=== PATIENT | male | born 1985 | race Caucasian/White ===

== ENCOUNTER 2017-04-23 21:34 | Emergency (ER) | payer MEDICAID ==
[~2017-04-23] VITALS: Ht 172.7 cm; Wt 81.6 kg
[2017-04-23 22:17] VITALS: BP 123/78
[2017-04-24] MEDS ORDERED: IBUPROFEN 600 MG TAB PO ONE (00:30)
== END 2017-04-24 00:41 | disposition home or self-care (01) ==
LOC: ER 21:44
DX: K08.89 Other specified disorders of teeth and supporting structures (principal)

== ENCOUNTER 2018-05-14 00:18 | Emergency (ER) | payer MEDICAID ==
[~2018-05-14] VITALS: Ht 172.7 cm; Wt 95.3 kg
[2018-05-14 00:47] VITALS: BP 109/73
[2018-05-14] MEDS ORDERED: TETANUS-DIPTH-ACEL PERTUSSIS 0.5ML SYRG IM ONE (04:45)
[2018-05-14] MEDS ORDERED: BACITRACIN TOP OINT 1 UD PKG TOP ONE (05:00)
== END 2018-05-14 05:08 | disposition home or self-care (01) ==
LOC: ER 00:19
DX: S51.051A Open bite, right elbow, initial encounter (principal); W54.0XXA Bitten by dog, initial encounter; Y93.89 Activity, other specified; Y92.89 Other specified places as the place of occurrence of the external cause; Y99.8 Other external cause status
CPT/HCPCS: 90471; 90715

== ENCOUNTER 2018-06-30 15:15 | Emergency (ER) | payer MEDICAID ==
[~2018-06-30] VITALS: Ht 172.7 cm; Wt 90.7 kg
[2018-06-30 15:45] VITALS: BP 123/68
[2018-06-30] MEDS ORDERED: KETOROLAC TROMETH 60MG/2ML VIAL IM ONE (16:30)
== END 2018-06-30 17:14 | disposition home or self-care (01) ==
LOC: ER 15:15
DX: R51 Headache (principal); Z90.89 Acquired absence of other organs
CPT/HCPCS: 96372; 99283; J1885

== ENCOUNTER 2018-12-22 16:22 | Emergency (ER) | payer MEDICAID, OTHER ==
[~2018-12-22] VITALS: Ht 172.7 cm; Wt 79.4 kg
[2018-12-22] MEDS ORDERED: LORazepam 0.5 MG TAB PO ONE (18:30)
[2018-12-22 18:59] LABS: Calcium 8.9 mg/dL (8.5-10.1); Potassium 3.4 mmol/L (3.5-5.1)
[2018-12-22 19:06] LABS: Albumin 4.3 g/dL (3.4-5.0); BUN/Creatinine Ratio 8.1; Bilirubin, Total 1.5 mg/dL (0.2-1.0); Total Protein 7.8 g/dL (6.4-8.2)
[2018-12-22 19:08] LABS: Basophils # (auto) 0.1 uL; Basophils % (auto) 0.6 % (0.0-2.0); Eosinophils # (auto) 0 uL; Eosinophils % (auto) 0.4 % (0.0-7.0); Hematocrit 46.5 % (41.0-53.0); Hemoglobin 15.9 g/dL (13.5-17.5); Lymphocytes # (auto) 2.9 uL; Lymphocytes % (auto) 29.8 % (10.0-50.0); Mean Corpuscular Hemoglobin 31.6 pg (28.0-32.0); Mean Corpuscular Hgb Conc. 34.1 g/dL (32.0-36.0); Mean Corpuscular Volume 92.6 fL (80.0-100.0); Monocytes # (auto) 0.9 uL; Monocytes % (auto) 9.4 % (0.0-12.0); Neutrophils # (auto) 5.8 uL; Neutrophils % (auto) 59.8 % (37.0-80.0); Nucleated Red Blood Cells % 0.2 %; Platelet Count (auto) 296 10^3/uL (140-450); Red Blood Cells 5.02 10^6/uL (4.5-5.90); Red Cell Distribution Width 13.1 % (11.8-14.3); White Blood Cell 9.7 10^3/uL (4.4-10.8)
[2018-12-22 22:31] LABS: Alcohol, Urine < 3.0 mg/dL (0-5); Amphetamine Screen, Urine POSITIVE (NEGATIVE); Barbiturate Scree,Urine NEGATIVE (NEGATIVE); Benzodiazephine Screen, Urine NEGATIVE (NEGATIVE); Cannabinoid Screen, Urine POSITIVE (NEGATIVE); Cocaine Screen, Urine NEGATIVE (NEGATIVE); Opiate Scree,Urine NEGATIVE (NEGATIVE); Phencyclidine Screen, Urine NEGATIVE (NEGATIVE)
[2018-12-22 22:46] LABS: Urine Bacteria NONE SEEN /hpf (None Seen); Urine Blood Negative /uL (Negative); Urine Mucus FEW (None Seen); Urine Specific Gravity 1.034 (1.001-1.035); Urine WBC 3 /hpf (0 - 3)
[2018-12-23] MEDS ORDERED: LORazepam 0.5 MG TAB PO ONE ×3 (12:45→18:00)
[2018-12-23] MEDS ORDERED: LORazepam 0.5 MG TAB ONE ×2 (12:46→12:52)
[2018-12-23 17:28] VITALS: BP 106/50
== END 2018-12-23 18:11 | disposition short-term general hospital (02) ==
LOC: EDBD 16:22 → EDUNIT# 16:29 → ER 16:29
DX: F41.9 Anxiety disorder, unspecified (principal); R41.82 Altered mental status, unspecified; F12.10 Cannabis abuse, uncomplicated; F15.10 Other stimulant abuse, uncomplicated
CPT/HCPCS: 36415; 73030; 74022; 80053; 80307; 80320; 80329; 81001; 83690; 85025; 93005

== ENCOUNTER 2021-06-20 20:46 | Emergency (ER) | payer MEDICAID, OTHER | END 2021-06-20 21:51 | disposition left against medical advice (07) | LOC: ER 20:48 | DX: Z04.6 Encounter for general psychiatric examination, requested by authority (principal); Z53.21 Procedure and treatment not carried out due to patient leaving prior to being seen by health care provider ==

== ENCOUNTER 2024-02-13 12:47 | Emergency (ER) | payer OTHER ==
[~2024-02-13] VITALS: Ht 170.2 cm; Wt 79.7 kg
[2024-02-13 13:50] VITALS: BP 116/93; PULSE 100; RESP 16; TEMP 97.6; O2SAT 98
[2024-02-13] MEDS ORDERED: IBUP-1456 PO (13:52)
[2024-02-13] MEDS ORDERED: CLIN1CAP70 PO (13:52)
[2024-02-13] MEDS: IBUPROFEN 800 MG TAB PO ONE (13:59)
== END 2024-02-13 14:05 | disposition home or self-care (01) ==
LOC: ER 12:47
DX: K04.7 Periapical abscess without sinus (principal); Z79.899 Other long term (current) drug therapy

== ENCOUNTER 2024-04-27 14:05 | Emergency (ER) | payer OTHER ==
[~2024-04-27 14:05] MED LIST: CLIN1CAP70 PO; IBUP-1456 PO
== END 2024-04-27 15:22 | disposition left against medical advice (07) ==
LOC: ER 14:05
DX: R68.84 Jaw pain (principal); Z53.21 Procedure and treatment not carried out due to patient leaving prior to being seen by health care provider